=== PATIENT | female | born 1995 | race Caucasian/White ===

== ENCOUNTER → 2021-04-12 17:08 | Outpatient (BNVA) | payer SELFPAY | PROVIDERS: Visit Provider Registered Nurse Neonatal Intensive Care | DX: S99.921A Unspecified injury of right foot, initial encounter (principal); S99.911A Unspecified injury of right ankle, initial encounter; X58.XXXA Exposure to other specified factors, initial encounter; M25.471 Effusion, right ankle | CPT/HCPCS: 73610; 73630 ==